=== PATIENT | male | born 2000 | race Two or more races ===

== ENCOUNTER 2024-03-21 22:55 | Emergency (ER) | payer OTHER ==
[~2024-03-21] VITALS: Ht 167.6 cm; Wt 63.6 kg
[2024-03-21] MEDS: IOHEXOL 300 MG/ML 100ML BOTTLE IJ ONE (23:39)
[2024-03-22 00:12] LABS: Basophils # (auto) 0 10 ^3/uL (0-0.2); Basophils % (auto) 0.5 % (0.0-2.0); Eosinophils # (auto) 0.2 10 ^3/uL (0-0.8); Eosinophils % (auto) 2.5 % (0.0-7.0); Hematocrit 46.1 % (41.0-53.0); Hemoglobin 15.6 g/dL (13.5-17.5); Lymphocytes # (auto) 2.1 10 ^3/uL (0.4-5.4); Lymphocytes % (auto) 29.4 % (10.0-50.0); Mean Corpuscular Hemoglobin 28.7 pg (28.0-32.0); Mean Corpuscular Hgb Conc. 33.9 g/dL (32.0-36.0); Mean Corpuscular Volume 84.7 fL (80.0-100.0); Monocytes # (auto) 0.8 10 ^3/uL (0-1.3); Monocytes % (auto) 10.7 % (0.0-12.0); Neutrophils % (auto) 56.9 % (37.0-80.0); Nucleated Red Blood Cells % 0.1 %; Platelet Count (auto) 335 10^3/uL (140-450); Red Blood Cells 5.44 10^6/uL (4.5-5.90); Red Cell Distribution Width 13.2 % (11.8-14.3); White Blood Cell 7.1 10^3/uL (4.4-10.8)
[2024-03-22 00:17] LABS: Chloride 109 mmol/L (98-107); Potassium 3.8 mmol/L (3.5-5.1); Sodium 139 mmol/L (136-145)
[2024-03-22 00:18] LABS: Anion Gap 5 (5-15); Carbon Dioxide 25 mmol/L (20-31)
[2024-03-22 00:19] LABS: Calcium 9.8 mg/dL (8.7-10.4)
[2024-03-22 00:23] LABS: Glucose 76 mg/dL (74-106)
[2024-03-22 00:24] LABS: BUN/Creatinine Ratio 8.1 (10.0-20.0); Blood Urea Nitrogen 8 mg/dL (9-23)
[2024-03-22 03:30] VITALS: BP 93/46; PULSE 65; RESP 16; O2SAT 96
[2024-03-22] MEDS: HYDROcodone-ACET 5/325MG TAB PO ONE (03:46)
== END 2024-03-22 03:48 | disposition home or self-care (01) ==
LOC: ER 22:55 → EDBD 22:55 → ER 03-22 03:48
DX: S16.1XXA Strain of muscle, fascia and tendon at neck level, initial encounter (principal); S29.012A Strain of muscle and tendon of back wall of thorax, initial encounter; S00.31XA Abrasion of nose, initial encounter; Z88.0 Allergy status to penicillin; V49.59XA Passenger injured in collision with other motor vehicles in traffic accident, initial encounter; Y93.89 Activity, other specified; Y92.411 Interstate highway as the place of occurrence of the external cause; Y99.8 Other external cause status
CPT/HCPCS: 36415; 70450; 71260; 72125; 74177; 80048; 85025; 99285; Q9967

== ENCOUNTER 2024-10-14 05:08 | Emergency (ER) | payer MEDICAID, OTHER ==
[2024-10-14] MEDS ORDERED: levETIRAcetam 1000 mg/100ml 100 ML IV ONE (05:15)
[2024-10-14] MEDS ORDERED: PANTOPRAZOLE 40 MG/10 ML VIAL INJ IV ONE (05:15)
[2024-10-14] MEDS ORDERED: ONDANSETRON HCL 4 MG/2 ML VIAL IV ONE (05:15)
[2024-10-14] MEDS ORDERED: KETOROLAC TROMETH 30 MG/ML 1ML VIAL IV ONE (05:15)
[2024-10-14] MEDS ORDERED: SODIUM CHLORIDE 0.9% 2,000 ML IV ONE (05:15)
--- NOTE | 2024-10-14 05:24 | ED.PDOC ---
History of Present Illness HPI Comments 24-year-old male with a history of epilepsy brought in by sister for evaluation of a seizure that patient states occurred just prior to arrival. Patient states he was lying in bed, then remembers waking up on the floor. He states when he has seizures his shoulders dislocate, which she feels happened this episode. He states he was able to reduce both shoulders himself. He currently denies any other injury. He states he is having chest pain, nausea and vomiting. He denies any vision changes, numbness, weakness or abdominal pain. He states he did not take his Keppra last night. Time Seen by MD: 05:13 Primary Care Provider: KYLE Reviewed Notes: Nurses Notes Allergies: Coded Allergies: Penicillins (Verified Allergy, Unknown, 03/21/24) Information Source: Patient Mode of Arrival: Ambulatory Past Medical History PAST MEDICAL HISTORY: Seizures Surgical History: Denies all surgeries Family History Family History: Reviewed,noncontributory to illness Social History Smoker: Non-Smoker Alcohol: Denies ETOH Use Drugs: Denies Drug Use Lives In: Home All Other Systems: Reviewed and Negative (Comprehensive systems review obtained and negative except for what is stated in the HPI.) Physical Exam General Appearance: Mild Distress HEENT: Other (Pupils and face symmetric. Moist mucous membranes.) Neck: Full Range of Motion, Non-Tender, Normal Inspection, Supple Respiratory: Lungs Clear, No Accessory Muscle Use, No Respiratory Distress, Normal Breath Sounds Cardiovascular: No Edema, No JVD, Regular Rate/Rhythm Breast Exam: Deferred Gastrointestinal: Non Tender, Soft Genitalia: Deferred Pelvic: Deferred Rectal: Deferred Extremities: Normal inspection, Normal range of motion, Non-tender, No pedal edema Neurologic: Alert (Oriented x4), Normal Affect, Normal Mood, Other (Ambulatory) Cerebellar Function: NOT DONE Reflexes: NOT DONE Skin: Dry, Normal Color, Warm Lymphatic: NOT DONE Was a procedure done? Was a procedure done?: No Differential Dx Considerations may include: Seizure, electrolyte imbalance, ACS, AL, arrhythmia, among others X-Ray, Labs, Meds, VS Comment 24-year-old male with a history of epilepsy brought in by family for evaluation of a seizure Vitals unremarkable Exam unremarkable Rhythm strip independently interpreted by me: Sinus rhythm, rate 78, no ectopy. CBC, basic metabolic panel, BNP, troponin The following was ordered for the patient: Seizure precautions ordered 1 L 0.9 normal saline IV bolus, Toradol 30 mg IV, Zofran 4 mg IV, Protonix 40 mg IV, Keppra 1 g IV Patient walked out of the ED prior to initiation of treatment. Time of 1ST Reevaluation: : Reevaluation 1ST: Walked out of ED Patient Education/Counseling: Treatment Family Education/Counseling: No Family Present Departure 1 Departure Time of Disposition: : Impression: Primary Impression: Recurrent seizures Disposition: LEFT AWOL/ELOPED Condition: Stable Discharged With: Relative Critical Care Note Critical Care Time?: No Stability Stability form required: No Heart Score Heart Score: Heart Score Response (Comments) Value History Slightly Suspicious 0 EKG N/A 0 Age <45 0 Risk Factors No known risk factors 0 Troponin N/A 0 Total 0 BECKY HERNANDEZ MD October 14, 2024 05:24
== END 2024-10-14 05:31 | disposition left against medical advice (07) ==
LOC: ER 05:08
DX: G40.909 Epilepsy, unspecified, not intractable, without status epilepticus (principal); Z88.0 Allergy status to penicillin